=== PATIENT | male | born 1955 | race Caucasian/White ===

== ENCOUNTER 2017-04-30 16:30 | Observation (INO) ==
[2017-04-30] MEDS ORDERED: SALINE FLUSH 10ml SYRINGE IVF PRN (16:37)
[2017-04-30] MEDS ORDERED: ASPIRIN 81 MG CHEWABLE TABLET PO ONE (16:37)
[2017-04-30] MEDS: NITROGLYCERIN 0.4 MG SUBLINGUAL TABLET SL PRN ×2 (16:46→16:52)
--- NOTE | 2017-04-30 16:46 | Emergency Department Report ---
Chest Pain HPI - General Chief Complaint: Chest Pain <Ángel Gillette Q - 05/01/17 14:15> Stated Complaint: tight chest,low temp,soa <Ángel Gillette Q - 05/01/17 14:15> Time Seen by Provider: 04/30/17 16:32 <Ángel Gillette - 05/01/17 14:15> Source: patient <Genny Malin 04/30/17 16:48> Mode of arrival: wheelchair <Genny Malin 04/30/17 16:48> Limitations: no limitations <Genny Malin 04/30/17 16:48> - History of Present Illness HPI narrative: Pt presents with a c/o fever and chest tightness for 3 days. Pt reports he had an ablation for atrial fib on Sunday, was dismissed on Sunday and has had the chest tightness, fever and sometimes productive cough since that time. He notified his denitrator who ask he come to [facility] ER for evaluation. Pt denies N/ V/D, pain to his arms, neck, or jaw, He as been diaphoretic with his fever. He states pain does not increase with deep inspiration or cough. <DeaGenny Frida 04/30/17 16:48> MD complaint: chest pain <Genny Malin 04/30/17 16:48> Occurred At: home <Genny Malin 04/30/17 16:48> Onset (ago): day(s) <BalaterraGenny Galicia 04/30/17 16:48> Duration: constant <Genny Malin 04/30/17 16:48> Pain location: substernal <Genny Malin 04/30/17 16:48> Pain radiation: none <Genny Malin Frida 04/30/17 16:48> Relieving factors: nothing <HerminiaevaristoGenny Frida 04/30/17 16:48> Exacerbating factors: nothing <Genny Malin 04/30/17 16:48> - Related Data Home Medications Medication Instructions Recorded Confirmed Cozaar (losartan) 100 mg tablet 100 mg PO DAILY tab 11/01/16 04/30/17 Lopressor (metoprolol tartrate) 50 50 mg PO BID 11/01/16 04/30/17 mg tablet Nitrostat (nitroglycerin) 0.4 mg 0.4 mg SL Q5M PRN 11/01/16 04/30/17 sublingual tablet Tricor (fenofibrate 145 mg PO DAILY 11/01/16 04/30/17 nanocrystallized) 145 mg tablet hydrochlorothiazide 25 mg tablet 25 mg PO DAILY 11/01/16 04/30/17 Picacho 7.5 mg-acetaminophen 325 mg 1 tab PO Q4-6HR tab 04/12/17 04/30/17 tablet apixaban (Eliquis)5 mg tablet 5 mg PO BID 04/12/17 04/30/17 abggxlvp-wyf-lmjvq acid 300 1 tab PO DAILY 04/12/17 04/30/17 mcg-lycopene 600 mcg-lutein 300 mcg tablet Amlodipine [Norvasc] 10 mg PO BID 04/30/17 04/30/17 Ascorbic Acid [Vitamin C] 1,000 mg PO BID 04/30/17 04/30/17 Magnesium Oxide [Magnesium] 250 mg PO DAILY 04/30/17 04/30/17 Pantoprazole Tab [Protonix Tab] 40 mg PO DAILY 04/30/17 04/30/17 <Ángel Gillette Q - 05/01/17 14:15> Allergies Allergy/AdvReac Type Severity Reaction Status Date / Time No Known Allergies Allergy Verified 04/30/17 17:01 <Ángel Gillette Q - 05/01/17 14:15> Review of Systems All systems: reviewed and negative except as stated <Genny Malin 16:48> Constitutional: Reports: as per HPI <Genny Malin 04/30/17 16:48> Cardiovascular: Reports: as per HPI <Genny Malin 04/30/17 16:48> Respiratory: Reports: as per HPI <Genny Malin 04/30/17 16:48> Gastrointestinal: Reports: as per HPI <Genny Malin 04/30/17 16:48> Integumentary: Reports: as per HPI <Genny Malin 04/30/17 16:48> PFSH Patient Stated Medical History Hearing Loss Yes Cardiac Arrhythmia Yes Hypertension Yes Valvular Heart Disease Yes Pneumonia Yes: 2016 Sleep Apnea Yes: Uses CPAP Hiatal Hernia Yes Clinic Medical History (Last Updated 04/12/17 @ 09:17 by Ginger James) Arthritis (Acute Medical) CAD (coronary artery disease) (Acute Medical) Chronic pain (Acute Medical) [place] (hard of hearing) (Acute Social Hx) Hypercholesteremia (Acute Medical) Hypertension (Acute Medical) Knee pain, right (Acute Medical) Skin cancer of nose (Acute Medical) Sleep apnea (Acute Medical) <Ángel Gillette Q - 05/01/17 14:15> Surgical History: Colonoscopy 2009. Heart cath x 3, stents. Right TKA, age 44. Gallbladder. Gallbladder complications, removal of sutures and repair. Right knee arthroscopy, age 42 <Genny Malin 04/30/17 16:48> Family History: Family History (Last Updated 04/12/17 @ 09:18 by Ginger James) Brother Diabetes Maternal Grandfather Diabetes Heart disease Father Heart disease Mother Colon cancer Glaucoma Arthritis Heart disease Sister Cancer <Ángel Gillette Q - 05/01/17 14:15> - Social History Smoking status: Former smoker <Genny Malin 04/30/17 16:48> Physical Exam - Limitations Limitations: no limitations <Genny Malin 04/30/17 16:48> - General General appearance: alert, in no apparent distress <Genny Malin 04/30 16:48> - Normal Exams: Head:: Normocephalic without trauma <Genny Malin 04/30/17 16:48> Eyes:: Pupils are PERRLA w/ EOMI <Genny Malin 04/30/17 16:48> Neck:: Full range of motion, without adenopathy <Genny Malin 16:48> Chest/Respirations:: Clear all reed (pain reproducable with palpation ), with good airflow, and symmetry bilaterally <Genny Malin 04/30/17 16:48> Cardiovascular:: Regular rate and rhythm, without murmur or gallop, Pulses 2+ all extremities, capillary refill, <2 seconds all extremities <Genny Malin 04/30/17 16:48> Abdomen:: Bowel sounds positive, soft, non-tender, non-distended <Genny Malin 04/30/17 16:48> Musculoskeletal:: No tenderness, or deformity noted, good range of motion, all extremities <Genny Malin 04/30/17 16:48> Integumentary:: No rashes <Genny Malin 04/30/17 16:48> Neurological:: Patient is alert, and oriented, cranial nerves, motor/sensory/ cerebellar, exams w/o gross deficits, to observation <Genny Malin 16:48> Psychiatric:: Patient exhibits, appropriate attention, emotion and affect < Genny Malin 04/30/17 16:48> Course Vital Signs Temperature 98.0 F 04/30/17 16:32 Pulse Rate 83 04/30/17 16:32 Respiratory Rate 18 04/30/17 16:32 Blood Pressure 151/70 H 04/30/17 16:32 Pulse Oximetry 96 04/30/17 16:32 Temperature 98.2 F 05/01/17 07:31 Pulse Rate 88 05/01/17 11:37 Respiratory Rate 15 05/01/17 08:30 Blood Pressure 122/74 05/01/17 07:31 Pulse Oximetry 100 05/01/17 08:30 <Ángel Gillette Q - 05/01/17 14:15> Vital Signs Temperature 98.0 F 04/30/17 16:32 Pulse Rate 83 04/30/17 16:32 Respiratory Rate 18 04/30/17 16:32 Blood Pressure 151/70 H 04/30/17 16:32 Pulse Oximetry 96 04/30/17 16:32 Temperature 98.2 F 05/01/17 07:31 Pulse Rate 88 05/01/17 11:37 Respiratory Rate 15 05/01/17 08:30 Blood Pressure 122/74 05/01/17 07:31 Pulse Oximetry 100 05/01/17 08:30 <HerminiaevaristoGenny Frida 04/30/17 17:44> Chest Pain - MDM Narrative Medical decision making narrative: Pt lab, XRAY, and EKGs reviewed. Dr Madera notified of findings and would like pt to be admitted observation to the hospitalist. Dr Brothers notified and will admit. Findings and plan discussed with pt who voices understanding. Questions answered. <Genny Malin - 04/30/17 17:44> - Differential Diagnosis Likely: unstable angina pectoris (influenza, viral infection), atypical chest pain, costochondritis, chest pain <Genny Malin R - 04/30/17 16:48> - Lab Data Attestation: I reviewed the patient's lab results. <eGnny Malin R - 04/30 17:44> Result diagrams: 05/01/17 04:14 05/01/17 04:14 <Ángel Gillette Q - 05/01/17 14:15> Lab Results 04/30/17 04/30/17 04/30/17 Range/Units 16:43 16:43 16:47 WBC 9.6 (4.5-11.0) T/MM3 RBC 4.42 L (4.50-5.90) M/MM3 Hgb 13.7 (13.5-17.5) GM/DL Hct 40.7 L (41-53) % MCV 92.1 (80-100) UM3 MCH 31.0 (26-34) UUG MCHC 33.7 (31-37) GM/DL RDW Std Deviation 44.8 (36.9-50.2) FL Plt Count 171 (130-400) T/MM3 MPV 11.4 (9.4-12.4) UM3 Immature Gran % (Auto) 0.2 (0.0-0.5) % Neut % (Auto) 61.9 (33-66) % Lymph % (Auto) 26.4 (23-45) % Baxter % (Auto) 10.3 H (0-9.0) % Eos % (Auto) 0.9 (0-4) % Baso % (Auto) 0.3 (0-2) % Neut # (Auto) 5.9 (1.8-7.7) T/MM3 Lymph # (Auto) 2.5 (1-4.8) T/MM3 Baxter # (Auto) 1.0 H (0-0.8) T/MM3 Eos # (Auto) 0.1 (0-0.5) T/MM3 Baso # (Auto) 0.0 (0-0.2) T/MM3 Abs Immat Gran (auto) 0.02 (0.00-0.03) T/MM3 Turbidity < 20 (0-20) Sodium 143 (134-144) MEQ/L Potassium 3.7 (3.6-5) MEQ/L Chloride 100 (98-107) MEQ/L Carbon Dioxide 32 H (22-30) MEQ/L Anion Gap 11 (5-15) MEQ/L BUN 19.0 (9-20) MG/DL Creatinine 1.0 (0.8-1.5) MG/DL GFR Calculation 76 BUN/Creatinine Ratio 19 (6-26) RATIO Glucose 106 (75-110) MG/DL Calculated Osmolality 277 (261-280) MOSM/KG Calcium 10.1 (8.4-10.2) MG/DL Icterus Index < 2 (0-7) Troponin I 0.354 H (0-0.12) ng/ml B-Natriuretic Peptide 836 H (0-175) pg/mL Specimen Hemolysis 20 (0-25) Influenza Type A (PCR) Negative (Negative) Influenza Type B (PCR) Negative (Negative) <Ángel Gillette Q - 05/01/17 14:15> Lab Results 04/30/17 04/30/17 04/30/17 Range/Units 16:43 16:43 16:47 WBC 9.6 (4.5-11.0) T/MM3 RBC 4.42 L (4.50-5.90) M/MM3 Hgb 13.7 (13.5-17.5) GM/DL Hct 40.7 L (41-53) % MCV 92.1 (80-100) UM3 MCH 31.0 (26-34) UUG MCHC 33.7 (31-37) GM/DL RDW Std Deviation 44.8 (36.9-50.2) FL Plt Count 171 (130-400) T/MM3 MPV 11.4 (9.4-12.4) UM3 Immature Gran % (Auto) 0.2 (0.0-0.5) % Neut % (Auto) 61.9 (33-66) % Lymph % (Auto) 26.4 (23-45) % Baxter % (Auto) 10.3 H (0-9.0) % Eos % (Auto) 0.9 (0-4) % Baso % (Auto) 0.3 (0-2) % Neut # (Auto) 5.9 (1.8-7.7) T/MM3 Lymph # (Auto) 2.5 (1-4.8) T/MM3 Baxter # (Auto) 1.0 H (0-0.8) T/MM3 Eos # (Auto) 0.1 (0-0.5) T/MM3 Baso # (Auto) 0.0 (0-0.2) T/MM3 Abs Immat Gran (auto) 0.02 (0.00-0.03) T/MM3 Turbidity < 20 (0-20) Sodium 143 (134-144) MEQ/L Potassium 3.7 (3.6-5) MEQ/L Chloride 100 (98-107) MEQ/L Carbon Dioxide 32 H (22-30) MEQ/L Anion Gap 11 (5-15) MEQ/L BUN 19.0 (9-20) MG/DL Creatinine 1.0 (0.8-1.5) MG/DL GFR Calculation 76 BUN/Creatinine Ratio 19 (6-26) RATIO Glucose 106 (75-110) MG/DL Calculated Osmolality 277 (261-280) MOSM/KG Calcium 10.1 (8.4-10.2) MG/DL Icterus Index < 2 (0-7) Troponin I 0.354 H (0-0.12) ng/ml B-Natriuretic Peptide 836 H (0-175) pg/mL Specimen Hemolysis 20 (0-25) Influenza Type A (PCR) Negative (Negative) Influenza Type B (PCR) Negative (Negative) <Genny Malin R - 04/30/17 17:44> - Radiology Data Attestation: I reviewed the patient's radiology results. (No acute findings per Dr Gillette) <Genny Malin R 04/30/17 17:44> - EKG Data EKG #1 EKG attestation: Yes: I reviewed and interpreted this EKG. <Ángel Gillette - 05/01/17 14:15> Yes: I reviewed and interpreted this EKG. <Genny Malin R - 04/30/17 17:44> EKG shows normal: sinus rhythm <Ángel Gillette Q - 05/01/17 14:15> sinus rhythm <Genny Malin R - 04/30/17 17:44> Rate: normal <Danyel Gilletten Q - 05/01/17 14:15> normal <Genny Malin R - 04/30/17 17:44> Rhythm: NSR <SibleyÁngel Q - 05/01/17 14:15> [place]/QRS: RBBB, LAHB/LAFB <Sibley,Ángel Q - 05/01/17 14:15> Heart block present: 1st Degree <Sibley,Ángel Q - 05/01/17 14:15> Interpretation: no acute changes <Sibley,Ángel Q - 05/01/17 14:15> EKG #2 EKG attestation: Yes: I reviewed and interpreted this EKG. <Danyel Gilletten Q - 05/01/17 14:15> Yes: I reviewed and interpreted this EKG. <Genny Malin R - 04/30/17 17:44> EKG shows normal: sinus rhythm <Ángel Gillette Q - 05/01/17 14:15> sinus rhythm <Genny Malin R - 04/30/17 17:44> Rate: normal <NainÁngel Q - 05/01/17 14:15> normal <Genny Malin R - 04/30/17 17:44> Rhythm: NSR <NainÁngel Q - 05/01/17 14:15> [place]/QRS: RBBB, LAHB/LAFB <Sibley,Ángel Q - 05/01/17 14:15> Heart block present: 1st Degree <Sibley,Ángel Q - 05/01/17 14:15> Interpretation: no acute changes <Sibley,Ángel Q - 05/01/17 14:15> Disposition Clinical Impression: Chest pain Qualifiers: Chest pain type: unspecified Qualified Code(s): R07.9 - Chest pain, unspecified <Sibley,Ángel Q - 05/01/17 14:15> Disposition: 02 To [facility] Acute Care <Nain,Ángel Q - 05/01/17 14:15> Condition: Improved <Ángel Gillette Q - 05/01/17 14:15> Instructions: <Ángel Gillette Q - 05/01/17 14:15> Prescriptions: No Action Magnesium Oxide [Magnesium] 250 mg PO DAILY Ascorbic Acid [Vitamin C] 1,000 mg PO BID Pantoprazole Tab [Protonix Tab] 40 mg PO DAILY Amlodipine [Norvasc] 10 mg PO BID Tricor (fenofibrate nanocrystallized) 145 mg tablet 145 mg PO DAILY hydrochlorothiazide 25 mg tablet 25 mg PO DAILY Cozaar (losartan) 100 mg tablet 100 mg PO DAILY tab Lopressor (metoprolol tartrate) 50 mg tablet 50 mg PO BID Nitrostat (nitroglycerin) 0.4 mg sublingual tablet 0.4 mg SL Q5M PRN PRN Reason: angina Picacho 7.5 mg-acetaminophen 325 mg tablet 1 tab PO Q4-6HR tab apixaban (Eliquis)5 mg tablet 5 mg PO BID uhlapfyq-nma-wququ acid 300 mcg-lycopene 600 mcg-lutein 300 mcg tablet 1 tab PO DAILY <Ángel Gillette Q - 05/01/17 14:15> Referrals: Kay Hurd DO [Family Provider] - <Ángel Gillette - 14:15> Forms: <Ángel Gillette - 05/01/17 14:15> Time of Disposition: 17:44 <Genny Malin - 04/30/17 17:44> - Seen By: midlevel <Genny Malin - 04/30/17 17:44>
--- OUTSIDE RECORDS SUMMARY | 2017-04-30 17:45 | External Medical Summary | Clinical Summary ---
:1955 Author Organization [facility] Address [address] [address] Phone Care Team Providers Name Role Phone Unavailable Primary Care Provider Unavailable Allergies No Known Allergies Current Medications Prescription Sig. Disp. Refills Start Date End Date Status olmesartan-hydrochlorothi One orally daily 0 0 11/25/2007 Active azide (BENICAR HCT) 40-25 MG per tablet clopidogrel (PLAVIX) 75 One orally daily 28 0 09/04/2008 Active MG tablet hydrocodone-acetaminophen take 1 tablet by 0 09/27/2009 Active (HYDROCODONE-ACETAMINOPHE ORAL route every 4 N) 7.5-325 MG - 6 hours as needed for pain fenofibrate (TRICOR) 145 One orally daily 0 0 11/25/2007 Active MG tablet tadalafil (CIALIS) 5 MG One orally at 0 0 08/30/2012 Active tablet bedtime as needed sotalol (BETAPACE) 80 MG One orally twice 0 0 11/25/2007 Active tablet daily simvastatin (ZOCOR) 20 MG One orally at 30 4 11/28/2009 Active tablet bedtime .reconcile (MEDICATION No Sig 1 0 08/30/2012 Active LIST IMPORTED) Active Problems Problem Noted Date Unspecified essential hypertension Other and unspecified hyperlipidemia Chronic pain syndrome Coronary atherosclerosis of [place] coronary artery Aortic valve disorders Atrial fibrillation (HCC) Spinal stenosis, lumbar region, without neurogenic claudication Obstructive sleep apnea (adult) (pediatric) Family History Medical History Relation Name Comments Other Other Mother - Other Other Father - Other Other Sister #1 - is Alive, x4 healthy Other Other Brother #1 - is Alive, x2 (twins ) one had motorcycle accident Other Other Family History Comments - 2 daughters and handicap son all healthy , daughter is power sweeper operator Relation Name Status Comments Father Alive Mother Alive Other Other Other Other Other Social History Tobacco Use Types Packs/Day Years Used Date Former Smoker Comments: Quit smoking: Year stopped /Number of yrs: /Packs per day: /Pack years: Sex Assigned at Date Recorded Not on file Last Filed Vital Signs Vital Sign Reading Time Taken Blood Pressure 128/76 09/27/2009 1:38 PM CDT Pulse - - Temperature - - Respiratory Rate - - Oxygen Saturation - - Inhaled Oxygen Concentration - - Weight 130.2 kg (287 lb) 09/27/2009 1:38 PM CDT Height 186.7 cm (6' 1.5") 06/18/2009 1:32 PM CDT Body Mass Index 37.35 09/27/2009 1:38 PM CDT Plan of Treatment Health Maintenance Due Date Last Done Comments Hepatitis C Screening 1955 DTaP,Tdap,and Td Vaccines (1 - Tdap) 02/06/1976 Influenza Vaccine (#1) 2016 Zoster Vaccine (#1) 2017 Colon Cancer Screening 07/15/2019 07/14/2009 Results Not on filefrom Last 3 Months
[2017-04-30 18:20] VITALS: BMI 45.7
--- NOTE | 2017-04-30 18:25 | History & Physical Report ---
History of Present Illness Date: 04/30/17 Chief complaint: Chest pain HPI: Mr. James is a 62 y/o male who just had an ablation for A-fib on 04/27/17. He was discharged home on 04/28/17, and since then has been having constant chest tightness and shortness of breath. He developed a fever of 100.2 on 04/29/17 and then began to have a cough productive of clear sputum. His chest pain worsens with movement or with deep breathing, but he admits that he feels like he can't catch his breath. He denies weakness or dizziness but his whole body hurts from the fever. He denies n/v/d, but has had some constipation. No blood in his stools. He denies dysuria. He's had b/l leg swelling for about a year. He contacted Dr. Madera's office for advice and they recommended to go to the ED for evaluation. There, WBC was normal at and there was no left shift. Chemistries were unremarkable. Troponin was slightly elevated at .354. CXR was negative. He was afebrile and vitals were stable. Influenza A/B were negative. Both Dr. Madera and Dr. Brothers were notified and the patient was admitted to observation status. Review of Systems All systems PM: 10-point ROS was reviewed, no additional remarkable complaints except - Constitutional Constitutional: Present: as per HPI - EENMT Eyes: Present: requires corrective lenses. Absent: change in vision Nose: Absent: obstruction Mouth/Throat: Present: sore throat (improving). Absent: changes in swallowing - Cardiovascular Cardiovascular: Present: as per HPI Vascular: Present: see HPI - Respiratory Respiratory: Present: as per HPI - Gastrointestinal Gastrointestinal: Present: as per HPI - Genitourinary Genitourinary: Present: as per HPI - Musculoskeletal Musculoskeletal: Present: as per HPI - Integumentary/Breasts Integumentary: Absent: rash, wounds - Neurological Neurological: Present: as per HPI - Psychiatric Psychiatric: Absent: anxiety - Endocrine Endocrine: Absent: palpitations - Allergic/Immunologic Allergic/Immunologic: Absent: seasonal rhinorrhea Past Medical History CAD History of a-fib Hypercholesteremia Hypertension Knee pain, right Skin cancer of nose (BCC and SCC) Sleep apnea, uses CPAP Morbid obesity, BMI 45.7 Surgical History: Colonoscopy 2008. Heart cath x 3, stents. Right TKA, age 44. Right knee arthroscopy. Gallbladder. Gallbladder complications, removal of sutures and repair. Right knee arthroscopy, age 42. Nasal skin biopsy showing BCC and SCC. He needs Mohs when he is cleared from a cardiac perspective. Family History: Family History (Last Updated 04/12/17 @ 09:18 by Ginger James) Brother Diabetes Maternal Grandfather Diabetes Heart disease Father Heart disease Mother Colon cancer Glaucoma Arthritis Heart disease Sister Cancer Family History Updates: Mother still living at age 82. She has had colon cancer and heart disease. Father at age 81 presumably of a heart attack. He had known CAD. Brother has diabetes and is disabled from motorcycle crash. Sister has had problems with melanoma. Paternal grandfather had a heart attack and uncontrolled diabetes. 3 grown children are all healthy. - Social History Smoking status: Former smoker (quit over 1 year ago) Packs per day: 0.25 Packs-years: 10 Substance use type: does not use Alcohol intake frequency: holidays/special occasions only Household members: spouse Current occupational status: employed Current occupation: Wage Hand at [employer] Medications Medication Instructions Recorded Confirmed Type Cozaar (losartan) 100 mg tablet 100 mg PO DAILY tab 11/01/16 04/30/17 History Lopressor (metoprolol tartrate) 50 50 mg PO BID 11/01/16 04/30/17 History mg tablet Nitrostat (nitroglycerin) 0.4 mg 0.4 mg SL Q5M PRN 11/01/16 04/30/17 History sublingual tablet Tricor (fenofibrate 145 mg PO DAILY 11/01/16 04/30/17 History nanocrystallized) 145 mg tablet hydrochlorothiazide 25 mg tablet 25 mg PO DAILY 11/01/16 04/30/17 History [place] 7.5 mg-acetaminophen 325 mg 1 tab PO Q4-6HR tab 04/12/17 04/30/17 History tablet apixaban (Eliquis)5 mg tablet 5 mg PO BID 04/12/17 04/30/17 History kixijtlc-vcz-mfhpj acid 300 1 tab PO DAILY 04/12/17 04/30/17 History mcg-lycopene 600 mcg-lutein 300 mcg tablet Amlodipine [Norvasc] 10 mg PO BID 04/30/17 04/30/17 History Ascorbic Acid [Vitamin C] 1,000 mg PO BID 04/30/17 04/30/17 History Magnesium Oxide [Magnesium] 250 mg PO DAILY 04/30/17 04/30/17 History Pantoprazole Tab [Protonix Tab] 40 mg PO DAILY 04/30/17 04/30/17 History Allergies Allergy/AdvReac Type Severity Reaction Status Date / Time No Known Allergies Allergy Verified 04/30/17 17:01 Exam Vital Signs: Temperature 98.0 F 04/30/17 16:32 Pulse Rate 75 04/30/17 17:38 Respiratory Rate 20 04/30/17 17:38 Blood Pressure 115/62 04/30/17 17:38 Pulse Oximetry 94 04/30/17 17:38 - Constitutional Present: no acute distress, well nourished, well developed, morbidly obese - Routine HEENT Exam Head: Present: normocephalic Eye: Present: PERRL. Absent: conjunctival icterus, scleral injection ENT: Present: mucous membranes moist, oropharynx clear, dentition normal - Routine Neck Exam Present: supple, lymphadenopathy (mild anterior cervical) - Routine Respiratory Exam Present: decreased breath sounds, CTA bilaterally - Routine Cardiovascular Exam Present: S1, S2, murmur, irregular rhythm - Routine Abdominal Exam Present: soft, normoactive bowel sounds, non tender, hernia (large ventral hernia) - Routine Extremities Exam Present: edema (3+ pitting BLE), pulses intact, normal capillary refill - Routine Back/Spine/Pelvis Exam Back/Spine: Present: full ROM - Routine Skin Exam Present: intact, dry, warm - Routine Neurological Exam Present: alert, oriented X3, CN II-XII intact, moving all extremities, vision grossly intact, hearing grossly intact, normal speech - Routine Psychiatric Exam Present: normal affect, normal thought process, cooperative Results - Labs CBC & Chem 7: 04/30/17 16:43 04/30/17 16:43 Assessment and Plan (1) Chest pain Current visit: Yes Status: Acute Assessment and Plan: IMPRESSION Chest pain with elevated troponin Fever, dyspnea CAD History of a-fib Hypercholesteremia Hypertension Knee pain, right Skin cancer of nose (BCC and SCC) Sleep apnea, uses CPAP Morbid obesity, BMI 45.7 PLAN Admit, observation status. Chest pain - trend trop, monitor HR on tele. Consult Dr. Madera. Start IS and DuoNeb QID. Consider CTA chest. Renal function stable. Resume home meds for HTN, A-fib, hypercholesteremia, GERD, knee pain. Code status: Full code. Discussed with Dr. Brothers. DVT Prophylaxis: Eliquis GI Prophylaxis: Protonix Resuscitation Status: Full Code - Physician Narrative Physician: Georgia Brothers MD Narrative: Date: 04/30/17 Time: 2124 I have independently evaluated and examined this patient. I reviewed the chart, the patient's history, and the PUBLIC HEALTH ANALYST/PA's documented findings as above. We discussed and formulated the assessment and plan as above with additions as below: Mr. James 62-year-old male who was off of Eliquis for 4 days last week around cardiac maze ablation for atrial fibrillation. He reports the procedure lasted proximally 6 hours and Eliquis was resumed yesterday. One day after the procedure he began noting dyspnea followed by low-grade fevers with a tight sensation across his chest although he doesn't characterize it as pleuritic pain. He's had to sit up to breathe comfortably. He's had some minor swelling in his legs but or thigh tenderness. Morbidly obese male, NAD, alert Respirations nonlabored, good airflow, breath sounds clear although inspiration triggers occasional cough Regular rhythm, S1-S2 Trace edema dorsal feet bilaterally, calves soft/nontender Twelve-lead EKG reviewed by myself demonstrating sinus rhythm with first-degree AV block and right bundle branch block. There are no acute ST/T-wave abnormalities although there is generalized T-wave flattening. Portable chest x-rays unremarkable, borderline cardiomegaly. ProBNP 836, initial troponin 0.354 Serial troponins being obtained as described above. In addition a d-dimer will be obtained with the next troponin-if significantly elevated patient will need CTA for evaluation of PE as he was off anticoagulation at the time symptoms started. Anticoagulation has been resumed although Eliquis dose would need to be increased to 10 mg twice a day if PE is identified. Continue home CPAP with sleep while hospitalized. Discussed with ER provider earlier today. Hospital Course Summary Disclaimer: The visit summary below is not to be considered part of the above Progress Note. Hospital Course: 04/30 Admit, observation status. Chest pain - trend trop, monitor HR on tele. Consult Dr. Madera. Start IS and DuoNeb QID. Consider CTA chest. Renal function stable. Check d-dimer-if abnormal will need CTA. Resume home meds for HTN, A-fib, hypercholesteremia, GERD, knee pain. Code status: Full code.
[2017-04-30] MEDS ORDERED: NITROGLYCERIN 0.4 MG SUBLINGUAL TABLET SL PRN (18:35)
[2017-04-30] MEDS ORDERED: POLYETHYL GLYCOL 3350 17gm PACKET PO PRN (18:39)
[2017-04-30] MEDS: APIXABAN 5 MG TABLET PO SCH (21:13)
[2017-04-30] MEDS: AMLODIPINE 10 MG TABLET PO SCH (21:13)
[2017-04-30] MEDS: SENNA + DOCUSATE TABLET PO SCH (21:13)
[2017-04-30] MEDS: ALBUTEROL/IPRATROPIUM 2.5mg-0.5mg/3ml NEB AEROSOL SCH (21:17)
[2017-04-30] MEDS: HYDROCODONE/APAP 7.5 MG/325 MG TABLET PO PRN (21:18)
[2017-05-01] MEDS: HYDROCODONE/APAP 7.5 MG/325 MG TABLET PO PRN ×4 (04:56→18:09)
[2017-05-01] MEDS ORDERED: PANTOPRAZOLE 40 MG TABLET PO SCH (06:30)
--- NOTE | 2017-05-01 08:11 | XRay Report ---
Indication: chest pain PROCEDURE: XR chest 1V: Encounter: Initial Comparison: November 17, 2015 FINDINGS: The lungs are clear. There is no abnormal airspace opacity, pleural effusion or pneumothorax identified. The heart size, pulmonary vasculature and mediastinum are within normal limits. IMPRESSION: No acute cardiopulmonary abnormality. .
[2017-05-01] MEDS: APIXABAN 5 MG TABLET PO SCH (08:20)
[2017-05-01] MEDS: SENNA + DOCUSATE TABLET PO SCH (08:20)
[2017-05-01] MEDS: ALBUTEROL/IPRATROPIUM 2.5mg-0.5mg/3ml NEB AEROSOL SCH ×2 (08:30→15:50)
[2017-05-01 08:38] VITALS: RESP 15
[2017-05-01] MEDS: AMLODIPINE 10 MG TABLET PO SCH (08:56)
[2017-05-01] MEDS ORDERED: MAGNESIUM OXIDE 400 MG TABLET PO SCH (09:00)
[2017-05-01] MEDS ORDERED: LOSARTAN 100 MG TABLET PO SCH (09:00)
[2017-05-01] MEDS ORDERED: FENOFIBRATE 145 MG TABLET PO SCH (09:00)
--- NOTE | 2017-05-01 10:46 | Cardiology Consult Note ---
<Ban Alarcon - Last Filed: 05/03/17 10:30> History of Present Illness Consult date: 05/01/17 Requesting physician: Aicha De La Vega Consult reason: chest pain Chief complaint: chest pain History of present illness: Mr. James is a 62 year old male who is known to Dr. Madera's practice who has a history of CAD, atrial flutter, nonrheumatic mitral regurg and HTN who just had Cardiac ablation for atrial flutter on 04/27/17. He was discharged home on , and since then has been having constant chest tightness and shortness of breath. He developed a fever of 100.2 on 04/29/17 and then began to have a cough productive of clear sputum. His chest pain worsens with movement or with deep breathing, but he admits that he feels like he can't catch his breath. He denies weakness or dizziness but his whole body hurts from the fever. He denies n/v/d, but has had some constipation. No blood in his stools. He denies dysuria. He's had leg swelling for about a year. He contacted Dr. Madera's office and was directed to the ED for evaluation. WBC was normal, chemistries were unremarkable. Troponin was slightly elevated at 0.354 (to be expected post ablation). CXR was negative. He was afebrile and vitals were stable. Influenza A /B were negative. Dr. Madera is consulted for evaluation of chest pain and we appreciate the consult. Review of Systems - Constitutional Constitutional: Present: as per HPI - EENMT Eyes: Absent: change in vision Balance: Absent: vertigo Mouth/Throat: Absent: sore throat - Cardiovascular Cardiovascular: Present: chest pain, dyspnea on exertion. Absent: palpitations , syncope Vascular: Present: pedal edema - Respiratory Respiratory: Present: cough, dyspnea on exertion - Gastrointestinal Gastrointestinal: Absent: diarrhea, nausea, vomiting - Integumentary/Breasts Integumentary: Absent: rash - Neurological Neurological: Absent: dizziness - Endocrine Endocrine: Absent: palpitations PFSH Patient Stated Medical History Hearing Loss Yes Cardiac Arrhythmia Yes Hypertension Yes Valvular Heart Disease Yes Pneumonia Yes: 2016 Sleep Apnea Yes: Uses CPAP Hiatal Hernia Yes Clinic Medical History (Last Updated 04/12/17 @ 09:17 by Ginger James) Arthritis (Acute Medical) CAD (coronary artery disease) (Acute Medical) Chronic pain (Acute Medical) [place] (hard of hearing) (Acute Social Hx) Hypercholesteremia (Acute Medical) Hypertension (Acute Medical) Knee pain, right (Acute Medical) Skin cancer of nose (Acute Medical) Sleep apnea (Acute Medical) Surgical History: Colonoscopy 2008. Heart cath x 3, stents. Right TKA, age 44. Right knee arthroscopy. Gallbladder. Gallbladder complications, removal of sutures and repair. Right knee arthroscopy, age 42. Nasal skin biopsy showing BCC and SCC. He needs Mohs when he is cleared from a cardiac perspective. Family History: Family History (Last Updated 04/12/17 @ 09:18 by Ginger James) Brother Diabetes Maternal Grandfather Diabetes Heart disease Father Heart disease Mother Colon cancer Glaucoma Arthritis Heart disease Sister Cancer - Social History Smoking status: Former smoker (quit over 1 year ago) Substance use type: does not use Alcohol intake frequency: does not drink Household members: spouse Current occupational status: employed Current occupation: red hat engineer Current residence: Apartment/Private Home Medications Home Medications Medication Instructions Recorded Confirmed Type Cozaar (losartan) 100 mg tablet 100 mg PO DAILY tab 11/01/16 04/30/17 History Lopressor (metoprolol tartrate) 50 50 mg PO BID 11/01/16 04/30/17 History mg tablet Nitrostat (nitroglycerin) 0.4 mg 0.4 mg SL Q5M PRN 11/01/16 04/30/17 History sublingual tablet Tricor (fenofibrate 145 mg PO DAILY 11/01/16 04/30/17 History nanocrystallized) 145 mg tablet hydrochlorothiazide 25 mg tablet 25 mg PO DAILY 11/01/16 04/30/17 History [place] 7.5 mg-acetaminophen 325 mg 1 tab PO Q4-6HR tab 04/12/17 04/30/17 History tablet apixaban (Eliquis)5 mg tablet 5 mg PO BID 04/12/17 04/30/17 History dxznivjl-hcx-kecnk acid 300 1 tab PO DAILY 04/12/17 04/30/17 History mcg-lycopene 600 mcg-lutein 300 mcg tablet Amlodipine [Norvasc] 10 mg PO BID 04/30/17 04/30/17 History Ascorbic Acid [Vitamin C] 1,000 mg PO BID 04/30/17 04/30/17 History Magnesium Oxide [Magnesium] 250 mg PO DAILY 04/30/17 04/30/17 History Pantoprazole Tab [Protonix Tab] 40 mg PO DAILY 04/30/17 04/30/17 History Allergies Allergy/AdvReac Type Severity Reaction Status Date / Time No Known Allergies Allergy Verified 04/30/17 17:01 Exam Vital signs: Temperature 98.2 F 05/01/17 07:31 Pulse Rate 73 05/01/17 09:31 Respiratory Rate 15 05/01/17 08:30 Blood Pressure 122/74 05/01/17 07:31 Pulse Oximetry 100 05/01/17 08:30 - Constitutional no acute distress, well nourished, obese, cooperative - Routine HEENT Exam Head: Present: normocephalic ENT: Present: mucous membranes moist - Routine Neck Exam Absent: JVD, carotid bruit - Routine Chest/Breast/Axilla Exam Chest wall: Absent: tenderness - Routine Respiratory Exam Present: decreased breath sounds - Routine Cardiovascular Exam Present: RRR, no murmur, rubs - Routine Abdominal Exam Present: soft, normoactive bowel sounds - Routine Extremities Exam Present: edema - Routine Skin Exam Present: intact, dry, warm - Routine Neurological Exam Present: alert, oriented X3 - Routine Psychiatric Exam Present: normal affect, normal thought process Results 05/01/17 04:14 05/01/17 04:14 Cardiac Enzymes 04/30/17 05/01/17 Range/Units 22:58 04:14 Troponin I 0.291 H 0.241 H (0-0.12) ng/ml CBC 05/01/17 Range/Units 04:14 WBC 7.2 (4.5-11.0) T/MM3 RBC 4.02 L (4.50-5.90) M/MM3 Hgb 12.3 L (13.5-17.5) GM/DL Hct 37.3 L (41-53) % Plt Count 160 (130-400) T/MM3 Neut # (Auto) 4.2 (1.8-7.7) T/MM3 Lymph # (Auto) 2.0 (1-4.8) T/MM3 [place] # (Auto) 0.8 (0-0.8) T/MM3 Eos # (Auto) 0.1 (0-0.5) T/MM3 Baso # (Auto) 0.0 (0-0.2) T/MM3 Comprehensive Metabolic Panel 05/01/17 Range/Units 04:14 Sodium 143 (134-144) MEQ/L Potassium 3.9 (3.6-5) MEQ/L Chloride 101 (98-107) MEQ/L Carbon Dioxide 33 H (22-30) MEQ/L BUN 19.0 (9-20) MG/DL Creatinine 0.9 (0.8-1.5) MG/DL Glucose 112 H (75-110) MG/DL Calcium 9.3 (8.4-10.2) MG/DL Intake and Output 04/30/17 05/01/17 05/01/17 22:59 06:59 14:59 Intake Total 1000 / 1000 240 / 240 Balance 1000 / 1000 240 / 240 Intake: Oral 1000 / 1000 240 / 240 Other: # Voids 1 Weight 337 lb 1.388 oz 333 lb 1.895 oz Patient Weight 05/02/17 06:59 Weight 333 lb 1.895 oz - Imaging and Cardiology Echo: pending Imaging & Cardiology Narrative: = = = = = = = = = = = = = = = = = = = = = = = = = = = = = = = = = = = = = = = = = = = = = = = = = = = = = = = = = = = Date of Exam: 04/30/17 Ordering Provider: Genny Malin APRN Type of Exam(s): XR chest 1V Reason for Exam(s): chest pain Indication: chest pain PROCEDURE: XR chest 1V: Encounter: Initial Comparison: November 17, 2015 FINDINGS: The lungs are clear. There is no abnormal airspace opacity, pleural effusion or pneumothorax identified. The heart size, pulmonary vasculature and mediastinum are within normal limits. IMPRESSION: No acute cardiopulmonary abnormality. 05/01/17 10:51 05/03/17 10:30 Date of Exam: 05/01/17 Type of Exam(s): US echo doppler complete DATE OF PROCEDURE May 01, 2017 This is a two-dimensional echo with spectral Doppler, color-flow and M-mode. It was obtained in a patient with chest pain and shortness of breath after ablation for atrial fibrillation. Left atrium is dilated. Left ventricle is dilated. Left ventricle wall thickness is normal. LV systolic function is normal with ejection fraction of about 63%. Right atrium is normal. Right ventricle is normal. Aortic root is mildly dilated. Mitral valve is morphologically normal with moderate to severe eccentric mitral regurgitation. Aortic valve is a trileaflet structure with no stenosis. Moderate aortic insufficiency is present. Tricuspid valve shows mild tricuspid regurgitation with normal estimated pulmonary artery systolic pressure of 31. Pulmonary valve shows no pulmonary insufficiency. There is no pericardial effusion. IMPRESSION 1. Normal LV systolic function with ejection fraction of 63%. 2. Left atrial dilation. 3. Left ventricular dilation. 4. Aortic root dilation. 5. Moderate to severe mitral regurgitation. 6. Moderate aortic insufficiency. 7. Mild tricuspid regurgitation with estimated pulmonary artery systolic pressure of 31. EKG interpretations - EKG EKG results cardiology: sinus rhythm - Blocks, axis, hypertrophy, ST abn AV and intraventricular conduction: 1 AV block, right bundle branch block (fixed /intermittent, complete/incomplete), left anterior fascicular block Assessment and Plan - Assessment and Plan (1) Chest pain Status: Acute No tightness noted today - reports ongoing EL since ablation - Has rub on exam, obtain echo to r/o pericardial effusion - Troponin trending down as expected (2) Atherosclerotic heart disease of [place] coronary artery without angina pectoris Status: Chronic (3) Typical atrial flutter Status: Chronic S/P cardiac ablation (4) Essential (primary) hypertension Status: Chronic (5) Mitral valve regurgitation Problem details: Moderate to severe Status: Chronic Likely cause of SOA - Diurese with Lasix 20mg po Daily - Lab: BMP, MAG in 1 week - will plan outpatient heart cath for valve replacement work-up. - Assessment and Plan Moderate to Severe Mitral valve regurgitation: Likely cause of increased SOA - Diurese with Lasix 20mg po Daily - Lab: BMP, MAG in 1 week - will plan outpatient heart cath for valve replacement work-up. Chest pain: No tightness noted today - reports ongoing EL since ablation - Has rub on exam, obtain echo to r/o pericardial effusion - Troponin trending down as expected Thank you for allowing us to participate in the care of this patient. Hospital Course Summary Disclaimer: The visit summary below is not to be considered part of the above Progress Note. Hospital Course: 04/30 Admit, observation status. Chest pain - trend trop, monitor HR on tele. Consult Dr. Madera. Start IS and DuoNeb QID. Consider CTA chest. Renal function stable. Check d-dimer-if abnormal will need CTA. Resume home meds for HTN, A-fib, hypercholesteremia, GERD, knee pain. Code status: Full code. <Vasile Madera - Last Filed: 05/04/17 15:40> [facility] Patient Stated Medical History Hearing Loss Yes Cardiac Arrhythmia Yes Hypertension Yes Valvular Heart Disease Yes Pneumonia Yes: 2016 Sleep Apnea Yes: Uses CPAP Hiatal Hernia Yes Clinic Medical History (Last Updated 04/12/17 @ 09:17 by Ginger James) Arthritis (Acute Medical) CAD (coronary artery disease) (Acute Medical) Chronic pain (Acute Medical) [place] (hard of hearing) (Acute Social Hx) Hypercholesteremia (Acute Medical) Hypertension (Acute Medical) Knee pain, right (Acute Medical) Skin cancer of nose (Acute Medical) Sleep apnea (Acute Medical) Family History: Family History (Last Updated 04/12/17 @ 09:18 by Ginger James) Brother Diabetes Maternal Grandfather Diabetes Heart disease Father Heart disease Mother Colon cancer Glaucoma Arthritis Heart disease Sister Cancer Exam Vital signs: Temperature 97.8 F 05/01/17 15:56 Pulse Rate 73 05/01/17 15:56 Respiratory Rate 15 05/01/17 16:00 Blood Pressure 122/57 05/01/17 15:56 Pulse Oximetry 96 05/01/17 16:00 Results 05/01/17 04:14 05/01/17 04:14 Assessment and Plan - Attestation Attestation Narrative: 05/04/17 15:40 Recommendation After examining the patient I agree with the above assessment. I am involved in the formulation of the patient's plan of care. - Assessment and Plan (1) Chest pain Status: Acute (2) Atherosclerotic heart disease of [place] coronary artery without angina pectoris Status: Chronic (3) Typical atrial flutter Status: Chronic (4) Essential (primary) hypertension Status: Chronic (5) Mitral valve regurgitation Problem details: Moderate to severe Status: Chronic Hospital Course Summary Disclaimer: The visit summary below is not to be considered part of the above Progress Note.
[2017-05-01 16:02] VITALS: O2SAT 96
[2017-05-01] MEDS ORDERED: ALBUTEROL 2.5mg/3ml (0.083%) NEB AEROSOL PRN (16:08)
--- NOTE | 2017-05-01 16:44 | Discharge Summary ---
Discharge Information Date of admission: 04/30/17 17:52 Anticipated date of discharge: 05/01/17 Attending Physician: Aicha De La Vega MD Primary care physician: Kay Hurd DO Consults: Dr Madera - Discharge Diagnosis (1) Chest pain Status: Acute mod-severe mitral regurgitation Chest pain with elevated troponin (Troponin elevated d/t recent ablation) CAD History of a-fib Hypercholesteremia Hypertension Knee pain, right Skin cancer of nose (BCC and SCC) Sleep apnea, uses CPAP Morbid obesity, BMI 45.7 - Procedures Procedures: Echo - final results pending...Verbal report - mod-severe mitral regurgitation - Laboratory Labs: 05/01/17 04:14 05/01/17 04:14 - Radiology Radiology: Date of Exam: 04/30/17 Indication: chest pain PROCEDURE: XR chest 1V: FINDINGS: The lungs are clear. There is no abnormal airspace opacity, pleural effusion or pneumothorax identified. The heart size, pulmonary vasculature and mediastinum are within normal limits. IMPRESSION: No acute cardiopulmonary abnormality. History of Present Illness HPI: Mr. James is a 62 y/o male who just had an ablation for A-fib on 04/27/17. He was discharged home on 04/28/17, and since then has been having constant chest tightness and shortness of breath. He developed a fever of 100.2 on 04/29/17 and then began to have a cough productive of clear sputum. His chest pain worsens with movement or with deep breathing, but he admits that he feels like he can't catch his breath. He denies weakness or dizziness but his whole body hurts from the fever. He denies n/v/d, but has had some constipation. No blood in his stools. He denies dysuria. He's had b/l leg swelling for about a year. He contacted Dr. Madera's office for advice and they recommended to go to the ED for evaluation. There, WBC was normal at and there was no left shift. Chemistries were unremarkable. Troponin was slightly elevated at .354. CXR was negative. He was afebrile and vitals were stable. Influenza A/B were negative. Both Dr. Madera and Dr. Brothers were notified and the patient was admitted to observation status. Objective Vital signs: Temperature 98.2 F 05/01/17 07:31 Pulse Rate 88 05/01/17 11:37 Respiratory Rate 15 05/01/17 16:00 Blood Pressure 122/74 05/01/17 07:31 Pulse Oximetry 96 05/01/17 16:00 Height/Weight/BMI: Height 1.83 m Weight 151.1 kg Body Mass Index 45.7 - Constitutional Present: no acute distress, well nourished, well developed - Routine HEENT Exam Head: Present: normocephalic, atraumatic - Routine Respiratory Exam Present: CTA bilaterally. Absent: wheezes - Routine Cardiovascular Exam Present: RRR, murmur - Routine Abdominal Exam Present: soft, non distended, non tender - Routine Extremities Exam Present: edema (trace), normal capillary refill - Routine Skin Exam Present: dry, warm - Routine Neurological Exam Present: alert, oriented X3 - Routine Lymphatic Exam Lymphatic: Absent: adenopathy - Routine Psychiatric Exam Present: normal affect, cooperative Hospital Course This is a general summary of the patient's hospital course. For more details refer to the complete medical record. Hospital course: 04/30 Admit, observation status. Chest pain - trend trop, monitor HR on tele. Consult Dr. Madera. Start IS and DuoNeb QID. Consider CTA chest. Renal function stable. Check d-dimer-if abnormal will need CTA. Resume home meds for HTN, A-fib, hypercholesteremia, GERD, knee pain. Code status: Full code. 05/01/17 Dr. Madera evaluated patient. Echocardiogram was performed showing moderate to severe mitral regurgitation. He recommends starting Lasix 20 mg daily with follow-up lab early next week and follow-up with him for heart catheterization and likely referral for valve replacement. Troponin likely elevated due to recent ablation. Patient will be discharged today. Time spent with patient: discharge greater than 30 minutes Resuscitation Status: Full Code Discharge Plan - Discharge Disposition Discharge Date: 05/01/17 Disposition: 01 Discharged Home, Self-Care *Condition: Improved Reason For Visit (Visit label in EMR): chest pain - Discharge Medications *Discharge Medications: New Albuterol HFA Inhaler [Ventolin Hfa 90 mcg/actuation] 2 puff ORAL INH Q4HR PRN #1 inhaler PRN Reason: cough/wheeze Furosemide [Lasix] 20 mg PO DAILY #30 tab Continue Magnesium Oxide [Magnesium] 250 mg PO DAILY Ascorbic Acid [Vitamin C] 1,000 mg PO BID Pantoprazole Tab [Protonix Tab] 40 mg PO DAILY Amlodipine [Norvasc] 10 mg PO BID Tricor (fenofibrate nanocrystallized) 145 mg tablet 145 mg PO DAILY hydrochlorothiazide 25 mg tablet 25 mg PO DAILY Cozaar (losartan) 100 mg tablet 100 mg PO DAILY tab Lopressor (metoprolol tartrate) 50 mg tablet 50 mg PO BID Nitrostat (nitroglycerin) 0.4 mg sublingual tablet 0.4 mg SL Q5M PRN PRN Reason: angina [place] 7.5 mg-acetaminophen 325 mg tablet 1 tab PO Q4-6HR tab apixaban (Eliquis)5 mg tablet 5 mg PO BID xyjazptp-jgz-domig acid 300 mcg-lycopene 600 mcg-lutein 300 mcg tablet 1 tab PO DAILY - Discharge Packet/Instructions *Diet: heart healthy diet *Activity: as tolerated *Pain Management/Treatment: n/a *Wound Care: n/a Additional Instructions: Check lab on Sunday per Ban Alarcon's instructions. *Expected Signs/Symptoms: less shortness of breath *Notify Physician if: you develop chest pain or increasing shortness of breath *During Business Hours Contact: Dr Madera's office *After Business Hours Contact: [facility] and ask for physician general practitioner. *Pending Lab/Results: No Pending Lab - Referrals/Follow Up *Referrals/Follow Up: Kay Hurd DO [Family Provider] - (within 1 wk) - Patient Handouts Patient Handouts: Chest Pain (DC) - Dismissal Complete Discharge Instructions are:: Complete Physician Narrative - Narrative Physician: other (Aicha De La Vega MD) Attestation Narrative: Date: 05/01/17 Time: 1743 I have independently evaluated and examined this patient. I reviewed the chart, the patient's history, and the PAPER TWISTER/PA's documented findings as above. We discussed and formulated the assessment and plan as above with additions as below: patient has resolution of his chest tightness but still feels SOA since ablation last Sunday. Oriented and without distress on exam. No pain. No chest tenderness. Echo completed by cardiology. MR found. Plans for outpatient diuresis and follow up per cardiology. Discharged home with inhaler and lasix. Will get labs on Sunday.
[2017-05-01] MEDS ORDERED: FUROSEMIDE 20 MG TABLET PO SCH (16:45)
[2017-05-01 17:22] VITALS: BP 122/57; PULSE 73; TEMP 97.8
[2017-05-02] MEDS ORDERED: FENOFIBRATE 145 MG TABLET PO SCH (08:00)
--- NOTE | 2017-05-02 10:29 | Echocardiogram ---
DATE OF PROCEDURE May 01, 2017 This is a two-dimensional echo with spectral Doppler, color-flow and M-mode. It was obtained in a patient with chest pain and shortness of breath after ablation for atrial fibrillation. Left atrium is dilated. Left ventricle is dilated. Left ventricle wall thickness is normal. LV systolic function is normal with ejection fraction of about 63%. Right atrium is normal. Right ventricle is normal. Aortic root is mildly dilated. Mitral valve is morphologically normal with moderate to severe eccentric mitral regurgitation. Aortic valve is a trileaflet structure with no stenosis. Moderate aortic insufficiency is present. Tricuspid valve shows mild tricuspid regurgitation with normal estimated pulmonary artery systolic pressure of 31. Pulmonary valve shows no pulmonary insufficiency. There is no pericardial effusion. IMPRESSION 1. Normal LV systolic function with ejection fraction of 63%. 2. Left atrial dilation. 3. Left ventricular dilation. 4. Aortic root dilation. 5. Moderate to severe mitral regurgitation. 6. Moderate aortic insufficiency. 7. Mild tricuspid regurgitation with estimated pulmonary artery systolic pressure of 31. MTDD
== END 2017-05-01 18:23 | disposition home or self-care (01) ==
LOC: SRG 16:30 → ED 16:30 → SUATTDRO 17:52 → SRG 17:55
PROVIDERS: ADMIT Internal Medicine; ATTEND Pediatrics